=== PATIENT | male | born 1945 | race Caucasian/White ===

== ENCOUNTER 2024-01-04 12:21 | Emergency (ER) | payer MEDICARE, OTHER, SELFPAY ==
[2024-01-04 12:25] VITALS: BP 204/90
--- NOTE | 2024-01-04 12:37 | ED.GENMED ---
History of Present Illness
<Kwame Chavis MD, Resident - Last Filed: 01/05/24 08:26>
General
Chief Complaint: Cardiac Symptoms
Source: patient
Time Seen by Provider: 01/04/24 12:34
Travel History
Have you traveled to any high risk areas for coronavirus over the past 14 days?: No
Have you had any contact with someone who has COVID-19?: No
Do you have any symptoms of coronavirus? Fever > 100 degrees, chills, cough, shortness of breath, sore throat, loss of taste or smell, muscle aches, or headache?: No
History of Present Illness
History of Present Illness:
Trae Davis, 78-year-old male, woke up with left-sided lateral arm pain this morning. His blood pressure at home was 191/100 so he went to the urgent care. The elevation persisted there and he was recommended to go to the emergency. On arrival his
blood pressure was 204/90. He denies chest pain, tightness, shortness of breath, lightheadedness, dizziness, headaches, nausea, vomiting, abdominal or back pain. He rode his bike for 16 miles yesterday and did not have any problems except for
'feeling hot' for a couple of minutes. He has not had any symptoms or changes to his health leading up to this episode. He has not missed taking his antihypertensives, and reports no recent illnesses.
Past History
<Kwame Chavis MD, Resident - Last Filed: 01/05/24 08:26>
Past History
ED Past Medical History: HTN and Hypercholesterolemia
ED Past Surgical History: None
Social History
Personal:
Living: with family
Employment: Employed
Review of Systems
<Kwame Chavis MD, Resident - Last Filed: 01/05/24 08:26>
Review of Systems
All Other Systems: Not applicable
Constitutional: Reports no symptoms
EENT: Reports no symptoms
Respiratory: Reports no symptoms
Cardiac: Reports no symptoms
ABD/GI: Reports no symptoms
: Reports no symptoms
Musculoskeletal: Reports other (left lateral arm pain)
Skin: Reports no symptoms
Neurological: Reports no symptoms
Endocrine: Reports no symptoms
Hematologic/Lymphatic: Reports no symptoms
Psychiatric: Reports no symptoms
Phy Exam
<Kwame Chavis MD, Resident - Last Filed: 01/05/24 08:26>
General Physical Exam
General Presentation: well appearing and no apparent distress
General Skin: warm and dry
General Habitus: normal
General Mental: alert
General Hydration: appears well hydrated
ENT Exam
ENT Exam: EOMI, pharynx normal, neck supple and normocephalic
Eye Exam
Eye Exam: PERRL, cornea clear and conjunctiva normal
Cardiovascular Exam
Cardiovascular Exam: regular rate/rhythm, no edema, no murmur and normal peripheral pulses
Pulmonary Exam
Pulmonary Exam: lungs clear, no respiratory distress, no rales, no crackles, no rhonchi, no stridor, no wheezing and no cough
Gastrointestinal Exam
Gastrointestinal Exam: normal bowel sounds, non tender, soft, no organomegaly, no pulsatile mass and non distended
Neurological Exam
Neurological Exam: alert, oriented x3, no motor deficits and speech normal
Musculoskeletal Exam
Musculoskeletal Exam: full ROM and no edema
Skin Exam
Skin Exam: normal color, warm/dry, no rash and no petechia
Psychiatric Exam
Psychiatric Exam: normal mood/affect
Course
<Kwame Chavis MD, Resident - Last Filed: 01/05/24 08:26>
Orders/Labs/Results
Orders:
Orders
01/04/24 12:22
EKG [Electrocardiogram (*1)] Urgent
Reason for Study: Chest Pain
EKG- Treatment ONCE
01/04/24 12:50
Complete Blood Count/No Diff Urgent
Comprehensive Metabolic Panel Urgent
TSH Reflex To Free T4 Urgent
Comment: TSH REFLEX ADDED ON BY FLOOR 1PM 01-04-24
Troponin I Urgent
01/04/24 13:09
Add On- LAB Urgent
Tests Added?: TSH with reflex to T4
01/04/24 15:21
Troponin I Stat
Abnormal Lab Results
01/04/24
12:50
MCH 31.3 H pg
(27.0-31.0)
Carbon Dioxide 34 H mmol/L
(22-30)
Glucose 103 H mg/dl
(70-99)
01/04/24 12:50
01/04/24 12:50
Vital Signs
Initial and Last Documented VS:
Initial Vital Signs
Temp Pulse Resp BP Pulse Ox
98.2 F 62 20 204/90 100
01/04/24 12:25 01/04/24 12:25 01/04/24 12:25 01/04/24 12:25 01/04/24 12:25
Last Documented Vital Signs
Temp Pulse Resp BP Pulse Ox
98.2 F 59 16 135/78 96
01/04/24 12:25 01/04/24 17:00 01/04/24 17:00 01/04/24 17:00 01/04/24 17:00
Fatimahlt;Nabil Wild, DO - Last Filed: 01/04/24 13:22>
Orders/Labs/Results
Orders:
Orders
01/04/24 12:22
EKG [Electrocardiogram (*1)] Urgent
Reason for Study: Chest Pain
EKG- Treatment ONCE
01/04/24 12:50
Complete Blood Count/No Diff Urgent
Comprehensive Metabolic Panel Urgent
TSH Reflex To Free T4 Urgent
Comment: TSH REFLEX ADDED ON BY FLOOR 1PM 01-04-24
Troponin I Urgent
01/04/24 13:09
Add On- LAB Urgent
Tests Added?: TSH with reflex to T4
01/04/24 15:21
Troponin I Stat
Abnormal Lab Results
01/04/24
12:50
MCH 31.3 H pg
(27.0-31.0)
Carbon Dioxide 34 H mmol/L
(22-30)
Glucose 103 H mg/dl
(70-99)
01/04/24 12:50
01/04/24 12:50
Vital Signs
Initial and Last Documented VS:
Initial Vital Signs
Temp Pulse Resp BP Pulse Ox
98.2 F 62 20 204/90 100
01/04/24 12:25 01/04/24 12:25 01/04/24 12:25 01/04/24 12:25 01/04/24 12:25
Last Documented Vital Signs
Temp Pulse Resp BP Pulse Ox
98.2 F 59 16 135/78 96
01/04/24 12:25 01/04/24 17:00 01/04/24 17:00 01/04/24 17:00 01/04/24 17:00
<Kwame Chavis MD, Resident - Last Filed: 01/05/24 08:26>
*Critical Care Note
Total Time (30-74mins, 75-104mins- exclusive of procedures): Not Applicable
<Kwame Chavis MD, Resident - Last Filed: 01/05/24 08:26>
Update Note
Update Note:
Troponin negative. Will re-check at 1600. If it continues to be negative, okay to discharge.
ED Attending Note
<Kwame Chavis MD, Resident - Last Filed: 01/05/24 08:26>
-
Portions of this chart may have been created with voice recognition software.� Occasional wrong word or��sound alike� substitutions may have occurred due to the inherent limitations of voice recognition software.
<Nabil Wild, DO - Last Filed: 01/04/24 13:22>
ED Attending Note
Patient seen and examined by attending physician: Yes
I performed a history and physical exam of patient and discussed management with resident, I reviewed resident's note and agree with documented findings and plan of care.: Yes
ED Attending Note:
I have reviewed and agree with history and treatment plan by Dr. Kwame Chavis. My exam revealed
Physical Exam
General: no apparent distress, not acutely ill
Neck: supple. no meningeal signs. normal posterior pharynx
Heart: s1/s2 regular rate and rhythm, no murmur. equal radial
pulses.
HEENT: Pupils equal round reactive to light, EOMI
Lungs: no acute respiratory distress. clear bilaterally
Abdomen: normal bowel sounds. not tender. no CVAT
Neuro: alert and oriented. no focal neurological deficits cranial nerves II through XII intact
Skin: no rash
Psychiatric: well kept. interactive and cooperative
Extremities: no edema. no calf tenderness. negative homans. good distal pulses
Patient with nonexertional left arm pain, of unclear etiology. Patient has had similar symptoms ongoing for months. He was more persistent this morning, and his blood pressure was elevated this morning, so he sought care. He was seen in urgent
care and sent to the emergency department. No acute findings on EKG. Will check serial troponins, and discharge follow-up with primary care if negative.
Discharge Plan
Departure
Patient Disposition: Home (Routine Discharge)
Date of Disposition: 01/04/24
Time of Disposition: 16:55
Patient with high blood pressure during this ER visit?: Yes
Condition: Good
Discharge Problem:
Arm pain, left, Hypertensive urgency
Instructions: High blood pressure in adults, BLOOD PRESSURE
Referrals:
Terry Ruiz MD [Family Provider] - Call in 1-3 days for appt
Interventions
Interventions:
*Risk Screen - Suicide Last Done: 01/04/24 12:25
*General Assessment Last Done: 01/04/24 12:25
*Neglect/Abuse Screening Last Done: 01/04/24 12:25
ED- Fall Risk Assessment Last Done: 01/04/24 12:38
*ED COVID-19 Vaccine History Last Done: 01/04/24 12:38
*Nursing Disposition Last Done: 01/04/24 17:09
ED- Pulmonary Assessment Last Done: 01/04/24 12:38
ED- Cardiac Assessment Last Done: 01/04/24 12:38
Discharge Date and Time
Discharge Date/Time: 01/04/24 17:10
Print Language: GAMBIAN
[2024-01-04 12:38] VITALS: BMI 27.0
[2024-01-04 12:59] LABS: Hematocrit 44.2 % (39.0-52.0); Hemoglobin 15.7 g/dL (13.0-18.0); Mean Corp Hgb Conc. 35.5 g/dL (33.0-37.0); Mean Corpuscular Hgb 31.3 pg (27.0-31.0); Mean Corpuscular Volume 88.2 fL (80.0-94.0); Mean Platelet Volume 9.1 fL (7.4-10.4); Platelet Count 252 10^3/uL (130-400); Red Blood Cell Count 5.01 10^6/uL (4.70-6.10); Red Cell Dist. Width 13.2 % (11.5-14.5); White Blood Cell Count 6.2 10^3/uL (4.8-10.8)
[2024-01-04 13:00] VITALS: BP 150/72
[2024-01-04 13:16] LABS: ALT (SGPT) 21 U/L (0-50); AST (SGOT) 27 U/L (17-59); Albumin 4.5 g/dl (3.5-5.0); Alkaline Phosphatase 50 U/L (38-126); Blood Urea Nitrogen 17 mg/dl (9-20); Calcium 9.4 mg/dl (8.4-10.2); Carbon Dioxide 34 mmol/L (22-30); Chloride 99 mmol/L (98-107); Estimated Creatinine Clearance 84 ml/min; Glucose 103 mg/dl (70-99); Potassium 3.9 mmol/L (3.5-5.1); Sodium 142 mmol/L (135-145); Total Bilirubin 1.1 mg/dl (0.2-1.3); eGFR > 60.00
[2024-01-04 13:25] LABS: Troponin I < 0.012 ng/ml
[2024-01-04 14:08] VITALS: BP 135/72
[2024-01-04 14:34] LABS: TSH Reflex To Free T4 1.72 uIU/ml (0.47-4.68)
[2024-01-04 15:00] VITALS: BP 130/74
[2024-01-04 16:00] VITALS: BP 140/74
[2024-01-04 16:00] LABS: Troponin I < 0.012 ng/ml
[2024-01-04 17:00] VITALS: BP 135/78
== END 2024-01-04 17:10 | disposition home or self-care (01) ==
LOC: EMR 12:21
PROVIDERS: Student in an Organized Health Care Education/Training Program; EMERGENCY PHYSICIAN Emergency Medicine; FAMILY PHYSICIAN Internal Medicine
DX: M79.602 Pain in left arm (principal); I16.0 Hypertensive urgency; I10 Essential (primary) hypertension; E78.00 Pure hypercholesterolemia, unspecified
CPT/HCPCS: 99283; 80053; 84443; 84484; 85027; 93005

== ENCOUNTER → 2024-02-29 09:17 | Outpatient (REF) | payer MEDICARE, OTHER, SELFPAY ==
[2024-02-29 10:44] LABS: Hemoglobin 15.4 g/dL (13.0-18.0); Mean Corp Hgb Conc. 34.2 g/dL (33.0-37.0); Mean Corpuscular Hgb 30.4 pg (27.0-31.0); Mean Corpuscular Volume 88.8 fL (80.0-94.0); Mean Platelet Volume 9.6 fL (7.4-10.4); Platelet Count 261 10^3/uL (130-400); Red Blood Cell Count 5.07 10^6/uL (4.70-6.10); White Blood Cell Count 4.9 10^3/uL (4.8-10.8)
[2024-02-29 11:09] LABS: Blood Urea Nitrogen 19 mg/dl (9-20); Calcium 9.5 mg/dl (8.4-10.2); Carbon Dioxide 33 mmol/L (22-30); Chloride 101 mmol/L (98-107); Glucose 98 mg/dl (70-99); Potassium 3.7 mmol/L (3.5-5.1); Sodium 144 mmol/L (135-145); eGFR > 60.00
== END ==
LOC: SDSPAT 09:17
PROVIDERS: ATTENDING PHYSICIAN Student in an Organized Health Care Education/Training Program; FAMILY PHYSICIAN Internal Medicine; OTHER PHYSICIAN Internal Medicine Critical Care Medicine
DX: Z01.818 Encounter for other preprocedural examination (principal)
CPT/HCPCS: 36415; 80048; 85027; 93005

== ENCOUNTER 2024-03-08 06:20 | Day surgery (SDC) | payer MEDICARE, OTHER, SELFPAY ==
[2024-02-29 10:14] VITALS: BMI 25.1
[2024-03-08] VITALS (10 sets, daily range): BP systolic 107–163; BP diastolic 65–95; BMI 25.1
[2024-03-08] MEDS: TYLENOL 1000 MG PO (12:02)
--- NOTE | 2024-03-08 13:58 | W.IMMPOSTOP ---
Surgical Immed Post Op Note
-
Primary Surgeon: Benjamín Castañeda MD
Assisting Surgeon:
Pre-op Diagnosis: left knee medial meniscal tear
Post-op Diagnosis: left knee medial and lateral meniscal tears, medial femoral condylar chondrosis
Procedure Performed: arthroscopic left knee partial medial and lateral meniscectomies, chondroplasty
Anesthesia Type: general
Specimen / Cultures: none
Estimated Blood Loss: 1mL
Complications: none apparent
Tourniquet time: 39 minutes
Operative Findings: left knee medial and lateral meniscal tears, medial femoral condylar chondrosis
Operative dictation # [id number]
== END 2024-03-08 16:15 | disposition home or self-care (01) ==
LOC: SDS 06:20
PROVIDERS: ATTENDING PHYSICIAN Student in an Organized Health Care Education/Training Program
DX: S83.242A Other tear of medial meniscus, current injury, left knee, initial encounter (principal); S83.282A Other tear of lateral meniscus, current injury, left knee, initial encounter; X58.XXXA Exposure to other specified factors, initial encounter; M94.262 Chondromalacia, left knee
CPT/HCPCS: 29880